=== PATIENT | male | born 1965 | race Caucasian/White ===

== ENCOUNTER 2024-07-10 16:06 | Inpatient (IN) ==
[2024-07-10 16:15] VITALS: TEMP 98.4
[2024-07-10] MEDS: OPTIRAY 320 125ml IV ONE (16:39)
[2024-07-10 16:59] LABS: Hematocrit (blood only) 41.7 % (42.0-52.0); Hemoglobin 15.1 g/dl (14.0-18.0); Mean Corpuscular Hemoglobin 33.2 pg (25.0-34.0); Mean Corpuscular Hgb Conc 36.2 g/dL (32.0-36.0); Mean Corpuscular Volume 91.6 fL (80.0-100.0); Mean Platelet Volume 10.1 fL (9.4-12.4); Platelet Count 307 K/uL (130-400); RDW Coefficient of Variation 11.6 % (11.5-14.5); RDW Standard Deviation 38.8 fL (36.4-46.3); Red Blood Count 4.55 M/uL (4.70-6.10); White Blood Count 8.84 K/ul (4.8-10.8)
--- NOTE | 2024-07-10 17:00 | CT Scan Report ---
Clinical History: Balance and speech issues. Technique: Axial computed tomography images were obtained of the brain from the vertex to the skull base without intravenous contrast. Findings: There is no sign of intracranial hemorrhage. There is normal bueno-white matter differentiation with no sign of acute or old infarction. No midline shift or other form of herniation is identified. There is no hydrocephalus. No obvious mass lesion is seen on this noncontrast examination. The visualized portions of the orbits and paranasal sinuses appear unremarkable. The mastoid air cells appear clear Impression: Unremarkable noncontrast CT of the brain Electronically signed by Ty Moraes 07-10-2024 5:00 PM
--- NOTE | 2024-07-10 17:01 | CT Scan Report ---
Clinical History: Balance and speech issues. Technique: Axial computed tomography images were obtained of the brain after the administration of intravenous contrast according to the CT angiogram protocol Findings: No definite stenosis or aneurysm is seen of the anterior, middle, or posterior cerebral artery circulations. The visualized vertebral arteries and the basilar artery appear unremarkable Impression: Unremarkable CTA of the brain Electronically signed by Ty Moraes 07-10-2024 5:01 PM
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
--- NOTE | 2024-07-10 17:08 | XRay Report ---
Technique: 2 frontal views of the chest were obtained Findings: There are no confluent pulmonary infiltrates. The heart size is within normal limits. No pleural effusion or pneumothorax is seen. There is prominent elevation of the right hemidiaphragm No fracture is noted. No foreign body is seen Impression: Prominent elevation of the right hemidiaphragm Electronically signed by Ty Moraes 07-10-2024 5:07 PM
[2024-07-10 17:09] LABS: Albumin Globulin Ratio 1.6 (0.9-2); Albumin Level 4.7 gm/dl (3.4-5.0); BUN Creatinine Ratio 13.4 (10-20); Bilirubin,Total 0.7 mg/dl (0.2-1.0); Calcium 10.1 mg/dl (8.6-10.3); Creatinine Clr Calc Pharmacy 103.8 ml/min; Magnesium 1.8 mg/dl (1.7-2.4); Potassium 3.9 mmol/L (3.5-5.1); Total Protein 7.7 gm/dl (6.0-8.3)
[2024-07-10 17:24] LABS: Partial Thromboplastin Time 28 Seconds (21-31); Prothrombin Time 10.9 Seconds (9.0-12.0)
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
[2024-07-10] MEDS ORDERED: ONDANSETRON INJ 2 MG/ML 2 ML VIAL IV PRN ×2 (20:56→23:12)
[2024-07-10] MEDS ORDERED: ALUMINUM/MAGNESIUM SUSP 30 ML UDC PO PRN ×2 (20:56→23:12)
[2024-07-10] MEDS ORDERED: ACETAMINOPHEN 325 MG TAB PO PRN ×2 (20:56→23:12)
[2024-07-10] MEDS ORDERED: POLYETHYLENE (MIRALAX) 17 GM PACK PO PRN ×2 (20:56→23:12)
[2024-07-10] MEDS ORDERED: MELATONIN 3 MG TAB PO PRN (20:56)
[2024-07-10 21:48] LABS: Chol HDL Ratio 3.8 (0-5)
[2024-07-10 21:55] LABS: Troponin I High Sensitivity 7.8 pg/ml (0-20)
[2024-07-10 22:04] LABS: Thyroid Stimulating Hormone 0.76 uIu/ml (0.300-4.500)
[2024-07-10] MEDS ORDERED: NON-FORMULARY MEDICATION (Sildenafil 100 mg tablet) PO PRN (23:12)
[2024-07-10] MEDS ORDERED: MAGNESIUM HYDROXIDE SUSP 30 ML UDC PO PRN (23:12)
[2024-07-10] MEDS ORDERED: ALBUTEROL HFA 8 GM INHALER INH PRN (23:12)
[2024-07-10] MEDS ORDERED: LORazepam 2 MG/1 ML VIAL IV PRN (23:37)
--- NOTE | 2024-07-10 23:39 | Billing Data ---
Date of Service July 10, 2024 Coding Level of Care Code 27293 INT INP/OBS CARE
[2024-07-11] MEDS: DULoxetine HCL 60 MG CAP PO SCH (00:07)
[2024-07-11 04:35] LABS: Basophils # (auto) 0.05 K/uL (0.00-0.20); Basophils % (auto) 0.6 %; Eosinophils # (auto) 0.44 K/uL (0.00-0.50); Eosinophils % (auto) 5.5 %; Hematocrit (blood only) 40.9 % (42.0-52.0); Hemoglobin 14.4 g/dl (14.0-18.0); Immature Granulocytes # (auto) 0.03 K/uL (0.01-0.20); Immature Granulocytes % (auto) 0.4 %; Lymphocytes # (auto) 2.58 K/uL (1.20-3.40); Lymphocytes % (auto) 32.3 %; Mean Corpuscular Hemoglobin 32.5 pg (25.0-34.0); Mean Corpuscular Hgb Conc 35.2 g/dL (32.0-36.0); Mean Corpuscular Volume 92.3 fL (80.0-100.0); Mean Platelet Volume 10.2 fL (9.4-12.4); Monocytes # (auto) 0.78 K/uL (0.11-0.59); Monocytes % (auto) 9.8 %; Neutrophils % (auto) 51.4 %; Platelet Count 285 K/uL (130-400); RDW Coefficient of Variation 11.7 % (11.5-14.5); RDW Standard Deviation 39.7 fL (36.4-46.3); Red Blood Count 4.43 M/uL (4.70-6.10); White Blood Count 7.98 K/ul (4.8-10.8)
[2024-07-11 04:41] LABS: Albumin Globulin Ratio 1.5 (0.9-2); Albumin Level 4.3 gm/dl (3.4-5.0); BUN Creatinine Ratio 12.8 (10-20); Bilirubin,Total 0.8 mg/dl (0.2-1.0); Calcium 9.9 mg/dl (8.6-10.3); Creatinine Clr Calc Pharmacy 107.1 ml/min; Globulin 2.9 gm/dl (2.5-4.0); Potassium 4.7 mmol/L (3.5-5.1); Total Protein 7.2 gm/dl (6.0-8.3)
[2024-07-11] MEDS: FLUTICASONE PROPIONATE NA SPR 16 GM BTL SCH (07:46)
[2024-07-11] MEDS: ATORVASTATIN 10 MG TAB PO SCH (07:47)
[2024-07-11] MEDS: LOSARTAN POTASSIUM 50 MG TAB PO SCH (07:47)
[2024-07-11] MEDS: PANTOprazole 40 MG TAB PO SCH (07:48)
[2024-07-11] MEDS: UMECLIDINIUM/VILANTEROL 62.5/25MCG 7 PUFFS/INHALER INH SCH (07:49)
[2024-07-11] MEDS: FOLIC ACID 1 MG TAB PO SCH (07:50)
[2024-07-11] MEDS: NALTREXONE HCL 50 MG TAB PO SCH (07:50)
[2024-07-11] MEDS: THIAMINE HCL 100 MG TAB PO SCH (07:50)
[2024-07-11 08:47] LABS: Estimated Average Glucose 108 mg/dl; Hemoglobin A1C 5.4 % (4.5-5.6)
--- NOTE | 2024-07-11 12:26 | Discharge Summary ---
Discharge Summary Date of Service July 11, 2024 Principal Dx & Hospital Course #1 = Principal Diagnosis (1) Syncope: Suspected orthostatic hypotension causing syncope. Losartan will be discontinued. He will resume his prazosin as before to treat his nightmares. (2) History of alcohol abuse: Alcohol cessation highly recommended (3) Elevated liver enzymes: Most likely due to alcohol intake. Alcohol cessation highly recommended (4) GERD (gastroesophageal reflux disease): Stable. Continue current medical management (5) DORIE on CPAP: Stable. Continue current medical management Plan Home todayJuly 11 Admission HPI Per Admitting Provider Steve is a 58 Y O Male with PMH of HTN , Hyperlipidemia, PTSD , COPD, DORIE with CPAP Erectile Dysfunction, Alcohol Use Disorder and GERD. He presented to ER today after he has syncopal event this morning. The patient reported that she heard a loud thud went into the other room. His eyes seem to be rolled and was making some gurgling sounds. Her grabbed some wet towel and put in his head . Syncopal event lasted for about 2 minutes. He had 1 episode before last which lasted for about 3 minutes . No any episodes before that He denied any trigger like fear, pain or crowded environment. Not associated with neck movements or exercises . He denies aura like lightheadedness, feeling unstable, sweating, palpitations, N/V. He denies confusion, Fatigue, Injury ,N/V, feeling cold or clammy, palpitations, shortness of breath and chest pain or bowel/bladder incontinence after the event. [facility] He consumes around 4 to 5 glass alcohol every night. He started drinking alcohol at the age of 20 and consumes around 4 to 5 glass alcohol every night since then. No family history of Sudden , or familial predisposition to syncope He was taking Prazosin for night mare due to PTSD for a month. He was taking one tablet per day for a week, two tablet per day for 2nd week, 3 tablet per day for 3rd week and 4 tablet per day in the 4th week. He had syncope as soon as he started 4 tablets per day. Prazosin has helped with his night mare symptoms somewhat. He mentioned BID dose helped for him Discharge Exam General-alert and oriented x3, no fever, no chills HEENT-head atraumatic and normocephalic, pupils equal and reactive to light, extraocular muscles intact Neck-no lymphadenopathy or thyromegaly, trachea midline Chest-clear to auscultation. No rales, wheezing or rhonchi Cardiac-regular rate and rhythm, normal S1 and S2 Abdomen-normal bowel sounds, no hepatosplenomegaly Extremities-no cyanosis, clubbing, or edema Neuro-cranial nerves II through XII intact, motor and sensory function within normal limits, strength symmetrical, no focal deficits Psych-normal affect, normal mood Discharge Plan Discharge Items Patient Disposition: Home - Self-Care Reason For Visit: SYNCOPE Discharge Diagnosis: Suspected orthostatic hypotension and syncope Activity: Resume your previous activity Non-emergency contact: Primary Care Provider Call non-emergency contact if: your symptoms worsen Follow-up/Referrals: Mariya Spencer PA-C [Primary Care Provider] - Diet: Regular Addtl Attending Provider Instructions: Stop losartan. Resume prazosin as before Pending Studies at Discharge: No Stand-Alone Forms: My [facility] Cardiorobotics, Smoking Cessation Medications and DC Order Prescriptions: Continued sildenafil 100 mg tablet 50 mg PO DAILY PRN (Reason: Erectile Dysfunction) Rx Instructions: administer 30 minutes to 4 hours before activity fluticasone propionate 50 mcg/actuation spray,suspension 1 spray intranasal DAILY Rx Instructions: administer into each nostril tiotropium-olodaterol 2.5-2.5 mcg/actuation mist 2 puff inhalation DAILY albuterol sulfate 90 mcg/actuation HFA aerosol inhaler 2 puff inhalation Q6H PRN (Reason: sob) multivitamin Tablet 1 tab PO QAM atorvastatin 20 mg Tablet 10 mg PO QAM vitamin E 100 unit Capsule 400 unit PO BID duloxetine 60 mg Capsule,Delayed Release(Dr/Ec) 60 mg PO PM omeprazole 20 mg Tablet,Delayed Release (Dr/Ec) 20 mg PO QAM prazosin 1 mg Capsule 1 mg PO UD Rx Instructions: [facility] medication is listed as Active/Suspended. Directions are 3 mg po hs naltrexone 50 mg Tablet 50 mg PO DAILY cyanocobalamin (vitamin B-12) 500 mcg Tablet 500 mcg PO DAILY lidocaine 5 % Ointment 1 applic TOPICAL TID PRN (Reason: foot pain) Tums 1 tab PO DAILY PRN (Reason: Other) Rx Instructions: Strength not listed on [facility] med list Discontinued losartan 50 mg tablet 50 mg PO DAILY Discharge Orders: Discharge Order (Routine); Ordered 07/11/24 Ordered By: Avila Valentin Admission Data Admit Date/Time: 07/10/24 20:57 Attending Provider: Avila Valentin Admit Provider: Jessica Menendez Primary Care Provider: Mariya Spencer Other Providers: Son Haque; [facility] Hospital Stay Data Consultations 07/10/24 17:53 ED Decision to Admit Stat Diagnostic Imagining Performed 07/10/24 16:15 CT head/brain wo con Stat 07/10/24 16:36 CT angio head w con Stat CT angio neck with con Stat Pending Results Patient Have Any Pending Studies at Discharge: No Discharge Instructions Given to Patient (Per Discharging Provider) Stop losartan. Resume prazosin as before Total Time Total Time Spent Total Time Spent (In Minutes): 45 minutes Coding Level of Care Code 97029 INP/OBS DISCH >30 MIN Diagnoses Syncope R55 History of alcohol abuse F10.11 Elevated liver enzymes R74.8 GERD (gastroesophageal reflux disease) K21.9 DORIE on CPAP G47.33
[2024-07-11 12:35] VITALS: BP 127/88; PULSE 91; RESP 16; O2SAT 95
--- NOTE | 2024-07-11 21:30 | Electrocardiogram Report ---
Test Reason : Blood Pressure : */* mmHG Vent. Rate : 100 BPM Atrial Rate : 100 BPM P-R Int : 178 ms QRS Dur : 84 ms QT Int : 332 ms P-R-T Axes : 82 16 54 degrees QTcB Int : 428 ms Normal sinus rhythm Normal ECG No previous ECGs available Confirmed by Jony Last ([id number]) on 07/11/2024 9:30:17 PM Referred By: REFERRED SELF Confirmed By: Jony Last
== END 2024-07-11 12:37 | disposition home or self-care (01) | DRG 312 ==
LOC: SUATTDRO → ED 16:06 → SUATTDRO 20:57 → EDINP 20:57